=== PATIENT | female | born 1945 | race Caucasian/White ===

== ENCOUNTER 2024-09-23 15:16 | Emergency (ER) | payer MEDICARE ==
[2024-09-23 16:16] LABS: #Basophils 0.04 10x3/uL (0.0-0.2); %Basophils 0.4 % (0.0-1.0); %Eosinophils 3.4 % (0.0-10.0); %Lymphocytes 14.8 % (21.0-51.0); %Monocytes 11.8 % (0.0-10.0); %Neutrophils 67.7 % (42.0-75.0); Hematocrit 24.5 % (36.0-47.0); Mean Corpuscular HGB CONC 32.7 g/dL (32.0-36.0); Mean Corpuscular Hemoglobin 29.5 pg (27.0-31.0); Mean Corpuscular Volume 90.4 fL (78.0-98.0); Mean Platelet Volume 10.2 fL (7.4-10.4); Platelet Count 350 10x3/uL (130-400); RBC Distribution Width 14.3 % (11.5-14.5); Red Blood Cell (RBC) Count 2.71 mill/uL (4.20-5.40)
[2024-09-23] MEDS ORDERED: Oxymetazoline HCl 0.05% (30 ML BOT) ONE (16:17)
[2024-09-23] MEDS ORDERED: Ondansetron PF 4 MG/2 ML Vial ONE ×2 (16:20→17:21)
[2024-09-23 16:30] LABS: INR-International Normal Ratio 1.1
[2024-09-23 16:31] LABS: PTT 33.2 sec (22.9-36.1)
[2024-09-23 16:37] LABS: ALT (SGPT) 33 U/L (8-55); AST (SGOT) 52 U/L (5-34); Albumin 2.2 g/dL (3.4-4.8); Alkaline Phosphatase 79 U/L (40-110); Anion Gap 11 mmol/L (10-20); BUN (Urea Nitrogen) 26 mg/dL (9.8-20.1); Bilirubin, Total 0.4 mg/dL (0.2-1.2); Calc. Creatinine Clearance 0 mL/min (70-130); Calcium 7.8 mg/dL (7.8-10.44); Carbon Dioxide 25 mmol/L (23-31); Chloride 106 mmol/L (98-107); Estimated GFR 83; Globulin 3.1 g/dL (2.4-3.5); Glucose 157 mg/dL (83-110); Potassium 4.2 mmol/L (3.5-5.1); Protein, Total 5.3 g/dL (5.8-8.1); Sodium 138 mmol/L (136-145)
[2024-09-23] MEDS ORDERED: Tranexamic Acid 1,000 MG/10 ML VIAL ONE (17:12)
[2024-09-23] MEDS ORDERED: Morphine 4 MG/ML VIAL ONE (17:12)
[2024-09-23] MEDS ORDERED: Bacitracin 1 PK ONE (18:07)
[2024-09-23 18:56] LABS: #Basophils 0.06 10x3/uL (0.0-0.2); %Basophils 0.5 % (0.0-1.0); %Eosinophils 3.6 % (0.0-10.0); %Lymphocytes 11.8 % (21.0-51.0); %Monocytes 9.8 % (0.0-10.0); %Neutrophils 72.7 % (42.0-75.0); Hematocrit 27.1 % (36.0-47.0); Hemoglobin 8.8 g/dL (12.0-16.0); Mean Corpuscular HGB CONC 32.5 g/dL (32.0-36.0); Mean Corpuscular Volume 89.4 fL (78.0-98.0); Mean Platelet Volume 10.7 fL (7.4-10.4); Platelet Count 355 10x3/uL (130-400); RBC Distribution Width 14.4 % (11.5-14.5); Red Blood Cell (RBC) Count 3.03 mill/uL (4.20-5.40)
[2024-09-23] MEDS ORDERED: Acetaminophen 500 MG TAB ONE (21:18)
== END 2024-09-23 22:55 | disposition short-term general hospital (02) ==
LOC: ERS 15:16
DX: R04.0 Epistaxis (principal); D64.9 Anemia, unspecified; E10.9 Type 1 diabetes mellitus without complications; I10 Essential (primary) hypertension; K21.9 Gastro-esophageal reflux disease without esophagitis; Z55.6 Problems related to health literacy; Z79.899 Other long term (current) drug therapy
CPT/HCPCS: 36430; 80053; 85025 ×2; 85610; 85730; 86850; 86900; 86901; 86920; 93005; J2272; J2405; P9016; P9059; 30901; 36415; 96374; 96375